=== PATIENT | female | born 1950 | race Caucasian/White ===

== ENCOUNTER → 2021-11-21 10:43 | Outpatient (CLI) | payer MEDICARE, OTHER, SELFPAY | PROVIDERS: PCP Family Medicine; Visit Provider Specialist | DX: R30.0 Dysuria (principal); R39.9 Unspecified symptoms and signs involving the genitourinary system; N95.2 Postmenopausal atrophic vaginitis; Z68.26 Body mass index [BMI] 26.0-26.9, adult | CPT/HCPCS: 51798; 81002; 87086; 99214 ==